=== PATIENT | female | born 1930 | race Caucasian/White ===

== ENCOUNTER 2017-03-29 12:09 | Emergency (ER) | payer OTHER ==
--- NOTE | 2017-03-29 14:14 | DIAGNOSTIC IMAGING REPORT ---
PROCEDURE: CT ABDOMEN/PELVIS W/O CONTRAST INDICATION: LEFT FLANK PAIN TECHNIQUE: Noncontrast axial images were obtained of the entire abdomen and pelvis with sagittal and coronal reformations. COMPARISON: None. FINDINGS: Hysterectomy. ABDOMEN: There are several tiny 1 mm nonobstructing right renal calculi. No hydronephrosis. Contracted gallbladder with small calcified gallstones. There is gallbladder wall thickening but no biliary distention. Liver, pancreas, spleen and adrenal glands are normal. Severe atherosclerosis of the aorta, celiac trunk and SMA. Small hiatal hernia. Mild descending colon diverticulosis. PELVIS: Right hip arthroplasty with prominent artifacts. Appendix not visualized but no evidence of acute appendicitis. Moderate sigmoid diverticulosis. Hysterectomy. Normal bladder. 5 cm fat filled supraumbilical and 2 cm umbilical hernias. Grade 1 L4-5 anterolisthesis. IMPRESSION: 1. Several 1 mm nonobstructing right renal calculi 2. Contracted gallbladder with cholelithiasis 3. Severe atherosclerosis of the aorta, celiac trunk and SMA 4. Small hiatal hernia 5. Moderate sigmoid diverticulosis 6. Hysterectomy 7. Fat filled supraumbilical and umbilical hernias 8. Results discussed with Dr. Talamantes All CT scans at this facility use dose modulation, iterative reconstruction, and/or weight-based dosing when appropriate to reduce radiation dose to as low as reasonably achievable.
--- NOTE | 2017-03-29 14:47 | ED CLINICAL REPORT ---
Clinical Report - Physicians/Mid Levels [facility] [address] [place] [address] 03/29/2017 12:09 Patient: PATRICIO NUNES Time Seen: 1221. Arrived- By ambulance. Historian- patient. HISTORY OF PRESENT ILLNESS Chief Complaint: ABDOMINAL PAIN. This started today and is still present. It was abrupt in onset and has been constant but is not gone now. At its maximum, severity described as moderate. When seen in the E.D., severity described as moderate. Modifying factors. Not worsened by anything. Not relieved by anything. It is described as sharp. No radiation. It is described as located in the left flank. No nausea, loss of appetite, vomiting or diarrhea. No additional abdominal pain. (patient states she was told to go to the emergency department because of concerns for Tylenol overdose. States she did not take more Tylenol than recommended. Patient states there is 10 tabs that are 325 mg. Per daughter, all of those tabs have been missing over the course of 24 hours. No other symptoms noted.). No recent travel. Similar symptoms previously: None. Recent medical care: The patient was seen recently in a clinic. REVIEW OF SYSTEMS No constipation, black stools, hematemesis, bloody stools or fever. No headache, chest pain, cough or skin rash. All systems otherwise negative, except as recorded above. PAST HISTORY See nurses notes. Medications: Lipitor 40mg. 1 daily. Tradjenta 5mg. 1 daily. Metformin 1000mg. 1- twice daily. Lasarton 25mg 1 - twice daily. Pottassium Chloride ER 10 1 Daily. BRINONIDINE EYE DROPS 1 TWICE DLY.. Latanoprost Ophthalmic. Tylenol Oral. Vitt. Allergies: No Known Drug Allergy. SOCIAL HISTORY Never smoker. No alcohol use or drug use. No recent travel. Is a local resident. ADDITIONAL NOTES The nursing notes have been reviewed. PHYSICAL EXAM Vital Signs: 03/29/2017 12:21 BP: 199/86. HR: 96. RR: 18. O2 saturation: 97%. Temp: 97.3 F. Pain level now: 4/10. Oxygen saturation normal. Appearance: Alert. Oriented X3. No acute distress. (pleasant, cooperative, non-toxic). ENT: Ears normal. Nose normal. Pharynx normal. Neck: Normal inspection. Neck supple. CVS: Normal heart rate and rhythm. Heart sounds normal. Pulses normal. Respiratory: No respiratory distress. Breath sounds normal. Chest nontender. Abdomen: Soft and nontender. Bowel sounds normal. Skin: Skin warm and dry. Normal skin color. No rash. Normal skin turgor. Extremities: Extremities exhibit normal ROM. No lower extremity edema. Neuro: Oriented X 3. No motor deficit. No sensory deficit. LABS, X-RAYS, AND EKG Abdominal CT: PROCEDURE: CT ABDOMEN/PELVIS W/O CONTRAST INDICATION: LEFT FLANK PAIN TECHNIQUE: Noncontrast axial images were obtained of the entire abdomen and pelvis with sagittal and coronal reformations. COMPARISON: None. FINDINGS: Hysterectomy. ABDOMEN: There are several tiny 1 mm nonobstructing right renal calculi. No hydronephrosis. Contracted gallbladder with small calcified gallstones. There is gallbladder wall thickening but no biliary distention. Liver, pancreas, spleen and adrenal glands are normal. Severe atherosclerosis of the aorta, celiac trunk and SMA. Small hiatal hernia. Mild descending colon diverticulosis. PELVIS: Right hip arthroplasty with prominent artifacts. Appendix not visualized but no evidence of acute appendicitis. Moderate sigmoid diverticulosis. Hysterectomy. Normal bladder. 5 cm fat filled supraumbilical and 2 cm umbilical hernias. Grade 1 L4-5 anterolisthesis. IMPRESSION: 1. Several 1 mm nonobstructing right renal calculi 2. Contracted gallbladder with cholelithiasis 3. Severe atherosclerosis of the aorta, celiac trunk and SMA 4. Small hiatal hernia 5. Moderate sigmoid diverticulosis 6. Hysterectomy 7. Fat filled supraumbilical and umbilical hernias. Laboratory Tests: UA-Culture if indicated: (MARLYN: 03/29/2017 12:35) ( MsgRcvd 03/29/2017 13:27) Final results Test Result Flag Units (Reference) URINE COLOR YELLOW URINE APPEARANCE SL CLOUDY URINE GLUCOSE NEGATIVE (NEGATIVE) URINE BILIRUBIN NEGATIVE (NEGATIVE) URINE KETONE NEGATIVE (NEGATIVE) URINE SPECIFIC GRAVITY 1.010 (1.010-1.030) URINE PH 5.5 (5.0-8.0) URINE PROTEIN 1+ (NEGATIVE) URINE UROBILINOGEN 0.2 EU/dL (0.2-1.0) URINE NITRITE NEGATIVE (NEGATIVE) URINE BLOOD TRACE-INTACT (NEGATIVE) URINE LEUK ESTERASE NEGATIVE (NEGATIVE) URINE RBC RARE rbc/hpf (0-1) URINE WBC RARE wbc/hpf (0-1) URINE EPITHELIAL CELLS NONE SEEN EPI/hpf (0-5) URINE BACTERIA NONE SEEN (NONE SEEN) URINE COMMENT CULT NOT INDICATED 2+ AMORPHOUS URATESURINE CULTURES ARE SET-UP BASED ON THE FOLLOWING CRITERIA:POSITIVE NITRITEPOSITIVE LEUKOCYTE ESTERASEGREATER THAN 10 WHITE BLOOD CELLSMODERATE (2+) OR GREATER BACTERIA CBC w Diff: (MARLYN: 03/29/2017 12:25) ( OkgRcvd 03/29/2017 12:52) Final results Test Result Flag Units (Reference) WHITE BLOOD COUNT 8.6 K/uL (4.5-11.5) RED BLOOD COUNT 3.80 L M/uL (4.00-5.20) HEMOGLOBIN 11.4 L gm/dL (12.0-16.0) HEMATOCRIT 34.5 L % (36.0-46.0) MEAN CELL VOLUME 91 fL (80-100) MEAN CORPUSCULAR HGB 30 pg (26-34) MEAN CORPUSCULAR HGB CONC 33 g/dL (31-37) RED CELL DISTRIBUTION WIDTH 15.3 H % (11.6-14.8) PLATELET COUNT 247 K/uL (150-400) NEUTROPHIL % 68.1 % (50-75) LYMPH % 23.4 L % (25-40) MONO % 6.3 % (3-14) EOSINOPHIL % 2.0 % (0-4) BASOPHIL % 0.2 % (0-2) PT with INR: (MARLYN: 03/29/2017 12:25) ( MsgRcvd 03/29/2017 12:56) Final results Test Result Flag Units (Reference) INR 1.0 (0.8-1.2) Low Intensity Therapy: INR 1.5-2.0 PT range 18.5-23.1Mod.Intensity Therapy: INR 2.0-3.0 PT range 23.1-31.5High Intensity Therapy: INR 2.5-3.5 PT range 27.4-35.5High Intensity Therapy 2: INR 3.0-4.0 PT range 31.5-39.3 Urine Drug Screen: (MARLYN: 03/29/2017 12:35) ( MsgRcvd 03/29/2017 13:39) Final results Test Result Flag Units (Reference) AMPHETAMINE/METHAMPHETAMINE NEGATIVE (NEGATIVE) BARBITURATE NEGATIVE (NEGATIVE) BENZODIAZEPINE NEGATIVE (NEGATIVE) CANNABINOID NEGATIVE (NEGATIVE) COCAINE NEGATIVE (NEGATIVE) ECSTASY NEGATIVE (NEGATIVE) METHADONE NEGATIVE (NEGATIVE) OPIATE NEGATIVE (NEGATIVE) The urine drug screen is a qualitative screening test fordrug overdose and abuse. All screen results should beconsidered as presumptive.Drugs screened for are as follows:BenzodiazepinesCocaineAmphetamines/MetamphetaminesTHC (Tetrahydrocannabinol)OpiatesBarbituratesEcstasyMethadonePositive results are unconfirmed. For confirmation, notifythe lab for the specimen to be sent to the reference lab.All confirmations must be performed by a differentmethodology.The ingestion of natural herbal and plant productscontaining Ephedra/Ephedra metabolites can produce in urineone or more substances capable of cross reacting withamphetamine/methamphetamine immunoassays. These testsprovide a preliminary result only. A more specificalternative chemical method must be used to obtain aconfirmed analytical result. CMP: (MARLYN: 03/29/2017 12:25) ( MsgRcvd 03/29/2017 13:59) Final results Test Result Flag Units (Reference) GLUCOSE 124 H mg/dL (70-110) BUN 22 H mg/dL (7-18) CREATININE 1.1 mg/dL (0.6-1.3) Estimated GFR 49.82 mL/min Estimated GFR- >60 mL/min Note: Persistent reduction over 3 months in eGFR<60 mL/min/1.73 m2 defines CKD. Patients with eGFR values>=60 mL/min/1.73 m2 may also have CKD if evidence ofpersistent proteinuria. Additional information may be foundat www.kidney.org. SODIUM 137 mmol/L (136-145) POTASSIUM 4.8 mmol/L (3.5-5.1) CHLORIDE 101 mmol/L (98-107) CARBON DIOXIDE 21 mmol/L (21-32) CALCIUM 9.2 mg/dL (8.5-10.1) TOTAL PROTEIN 8.2 g/dL (6.4-8.2) ALBUMIN 3.4 g/dL (3.3-5.0) BILIRUBIN, TOTAL 0.4 mg/dL (0.0-1.0) ALKALINE PHOSPHATASE 144 H U/L (46-116) AST (SGOT) 39 H U/L (15-37) ALT (SGPT) 34 U/L (12-78) LIPASE 216 U/L (73-393) ETHYL ALCOHOL < 2 L mg/dL (3-10) ACETAMINOPHEN < 2.0 L ug/mL (10-30) . PROGRESS AND PROCEDURES Course of Care: the patient is a 86-year-old female presenting for evaluation of abdominal pain and potential overdose. At this time differential diagnosis includes acute acetaminophen overdose. Patient also been evaluated for abdominal pain. Differential diagnosis includes renal colic, diverticulitis, or urinary tract infection. Patient isagreeable to the treatment plan. Again patient is very adamant that she did not overdose on her Tylenol however family is concerned about this. Laboratory studies for acute toxic Ingestion have been ordered. The patient's workup was remarkable for the findings above. No acute findings of acute acetaminophen overdose. PT is normal. No significant elevation in the liver enzymes, Although only slightly elevated. Acetaminophen level is also negative. do not feel patient has acute Tylenol overdose. Would expect either larger elevation in patients liver enzymes, an abnormality in the PT, or a slight elevation at least in the patient's acetaminophen level. Patient's CT scan does not show any signs of pathology to explain the patient's left flank pain. Urinalysis does not show any signs of infection. Because of the patient's negative workup here in the emergency department, do not feel patient requires further emergency department evaluation/workup. Do not fill patient is being admitted. Recommended patient follow up with her primary care Dr. Also recommended patient have a home health nurse or other type of supervision while at home. Also recommended other alternatives for the patient's discomfort including a pillbox for the Tylenol itself. Disposition: Discharged. Condition: good. CLINICAL IMPRESSION Acute left lower quadrant abdominal pain. Accidental single drug overdose with acetaminophen. INSTRUCTIONS Warnings: GENERAL WARNINGS: Return or contact your physician immediately if your condition worsens or changes unexpectedly, if not improving as expected, or if other problems arise. SPECIFICALLY, return if you develop pain, fever, vomiting, the inability to keep fluids down, blood in vomitus, blood in diarrhea, fainting or lightheadedness. Your Current Medications: CONTINUE TAKING THE FOLLOWING MEDICATIONS: BRINONIDINE EYE DROPS 1 TWICE DLY.*. Lasarton 25mg 1 - twice daily*. Latanoprost Ophthalmic. Lipitor 40mg. 1 daily*. Metformin 1000mg. 1- twice daily*. Pottassium Chloride ER 10 1 Daily*. Tradjenta 5mg. 1 daily*. Tylenol Oral. Vitt*. Follow-up: Return to the emergency department as needed. Follow up with your doctor in three days. Reason for referral: recheck today's concerns. Summary of care provided to patient via paper. Screening today revealed the patient's blood pressure to be in the normal range. The patient should follow up with a primary care provider for blood pressure management. Understanding of the discharge instructions verbalized by patient. (Electronically signed by Jay Talamantes Dr. 04/01/2017 5:18)
--- NOTE | 2017-03-29 14:47 | ED NURSING NOTES ---
Clinical Report - Nurses [facility] [address] [place] [address] 03/29/2017 12:09 [id number] Triage time 12:21. Acuity: LEVEL 3. Chief Complaint: BACK PAIN (Questionable if she took 6 tylenol over 24hrs. Sent from the clinic for od of the tylenol.). Alert. No acute distress. SEPSIS SCREEN: Sepsis Screen: negative. Negative (no infection suspected/documented). LUCI COMA SCORE: Luci Coma Scale: 15- eyes open spontaneously (4); best verbal response- oriented x 4 (5); best motor response- obeys commands (6). --12:31 Yadira Mcdonald R.N. 12:21 03/29/17. BP: 199/86. HR: 96. RR: 18. O2 saturation: 97%. Temp: 97.3 F. Pain level now: 01/30. --12:31 Yadira Mcdonald R.N. 12:21 03/29/17. BP: 199/86. HR: 96. RR: 18. O2 saturation: 97%. Temp: 97.3 F. Pain level now: 01/30. --12:31 Yadira Mcdonald R.N. Weight: 79.3 kg estimated. Height/Length: 65 inches Estimated. BMI: 29.1. --12:27 Yadira Mcdonald R.N. Medications Vitt. --12:25 Yadira Mcdonald R.N. Tylenol Oral. --12:25 Yadira Mcdonald R.N. Latanoprost Ophthalmic. --13:43 Britta Lewisraine, ER Tech1 BRINONIDINE EYE DROPS 1 TWICE DLY.. --13:44 Debbie Katia, ER Tech1 Pottassium Chloride ER 10 1 Daily. --13:45 Britta Lewisraine, ER Tech1 Lasarton 25mg 1 - twice daily. --13:45 Britta Lewisraine, ER Tech1 Metformin 1000mg. 1- twice daily. --13:46 Debbie, Katia, ER Tech1 Tradjenta 5mg. 1 daily. --13:46 Debbie, Katia, ER Tech1 Lipitor 40mg. 1 daily. --13:47 Debbie, Katia, ER Tech1. Medication/allergy information source: the patient. --12:31 Yadira Mcdonald R.N. Allergies No Known Drug Allergy. --12:27 Yadira Mcdonald R.N. History Arrived by private vehicle. Historian: patient. Accompanied by family. Primary physician ([facility]). This started just prior to arrival. Treatment ENVIRONMENTAL ENGINEERING TECHNICIAN: None. PAST MEDICAL HX: Immunizations: status is unknown. The patient is post-menopausal. SOCIAL HX: Never smoker. No alcohol use or drug use. FALL RISK ASSESSMENT: Fall risk assessment completed. No fall risk identified. NUTRITIONAL RISK ASSESSMENT: The nutritional risk assessment revealed no deficiencies. LEARNING NEEDS ASSESSMENT: The learning needs assessment revealed no barriers. FUNCTIONAL ASSESSMENT: Functional assessment performed: requires assistance with the activities of daily living; uses walker. SKIN INTEGRITY ASSESSMENT: Skin integrity risk assessment completed. No skin integrity risk identified. --12:31 Yadira Mcdonald R.N. PROBLEMS: Back Pain. --12:27 Yadira Mcdonald R.N. Interventions ID band on patient. To room. --12:31 Yadira Mdconald R.N. PHYSICAL ASSESSMENT Ambulatory to room. Patient gowned. GENERAL / NEURO / PSYCH: Alert. Oriented X 4. Appears anxious. HEENT: No facial asymmetry noted. Mucous membranes are pink. RESPIRATORY: Respirations not labored. CVS: Capillary refill less than 2 seconds. GI / : Abdomen nontender. SKIN: Skin intact. Skin is warm and dry. Normal skin turgor. --12:32 Yadira Mcdonald R.N. NURSING PROGRESS NOTES Patient gowned. Head of bed elevated. Two patient identifiers checked. Call light placed in reach. Side rails up x 2. Bed placed in lowest position. Brakes of bed on. Patient ready for evaluation. --12:32 Yadira Mcdonald R.N. 12:32 03/29/2017 Site #1 started via IV in the right wrist with an 20g angiocath; one attempt. Blood drawn: rainbow set. Labeled in the presence of the patient and sent to the lab. Saline lock flushed with 10 mL saline. --12:32 Yadira Mcdonald R.N. 12:43 03/29/2017 Started bag #1 1000 mL IV Fluids IV NS (Saline); bolus of 500 mL over 30 minute(s) then at 1000 mL/hr over 30 minute(s) via site #1. Allergies verified and confirmed 5 rights. IV patency established. IV site checked: no pain, redness, or swelling. IV flushed thoroughly pre- and post-medication administration. --12:43 Yadira Mcdnoald R.N. 13:28 03/29/17. Reassessment after fluids administered. She is calm. Overall patient status is the same- she states feels the same (amb to BR and back, pt states she had a BM, positioned on left side). RESPIRATORY: No respiratory distress. SKIN: Skin is warm and dry. Skin rash located on the left hand (left wrist). --13:29 Lucie Ahumada R.N. 13:32 03/29/17. BP: 185/65. HR: 102. RR: 18. O2 saturation: 96%. --13:33 Lucie Ahumada R.N. 13:30 03/29/2017 IV Fluids IV NS Discontinued: bag #1. Total amount infused: 500 mL (bolus infused). --13:35 Lucie Ahumada R.N. ( Assisted to and from the bathroom. Patient uses walker. Voids w/o difficulty.). --14:11 Yadira Mcdonald R.N. 14:11 03/29/17. BP: 144/72 taken on the left arm, while sitting. HR: 103. RR: 16. O2 saturation: 97% on room air. --14:12 Yadira Mcdonald R.N. 15:00. Reassessment after fluids administered and procedure. She is resting quietly. Overall patient status is the same- she states feels the same. RESPIRATORY: No respiratory distress. SKIN: Skin is warm and dry. --16:45 Lucie Ahumada R.N. 15:00 03/29/2017 Site #1 removed upon discharge. Catheter intact. Bandaid applied. --16:47 Lucie Ahumada R.N. DISPOSITION / DISCHARGE Departure time: 1500. Condition at departure: improved and stable. Fall risk assessment completed. Risk factors identified include patient age greater than 65 years and impairment of mobility. Fall interventions initiated. Family at bedside. No learning barriers present. Teaching performed with the patient and family. Discharge instructions provided and reviewed with the patient and family. Patient and family verbalized understanding. Written instructions provided in [place]. The patient was discharged home and accompanied by family. She left the Emergency Department ambulatory, via private vehicle and (with her walker). Family member driving. --16:44 Lucie Ahumada R.N. 15:00 03/29/17. BP: 152/87. HR: 86. RR: 16. O2 saturation: 97%. Pain level now: 0/10. --16:44 Lucie Ahumada R.N. 15:00 03/29/17. BP: 152/87. HR: 86. RR: 16. O2 saturation: 97%. Pain level now: 0/10. 14:11 03/29/17. BP: 144/72 taken on the left arm, while sitting. HR: 103. RR: 16. O2 saturation: 97% on room air. 13:32 03/29/17. BP: 185/65. HR: 102. RR: 18. O2 saturation: 96%. 12:21 03/29/17. BP: 199/86. HR: 96. RR: 18. O2 saturation: 97%. Temp: 97.3 F. Pain level now: 410. --17:55 Yadira Mcdonald R.N. Locked/Released at 03/29/2017 17:56 by Yadira Mcdonald R.N.
--- NOTE | 2017-03-29 14:47 | ED ORDER SUMMARY ---
..... Patient: PATRICIO NUNES OrderSheet [facility] VisitID: [id number] [place] [address] 86y, F Registration Date/Time: 03/29/2017 ORDER SHEET Weight: 79.3 kg (estimated) Allergies: No Known Drug Allergy GENERAL ORDERS: CT Abd/Pel wo Cont Urgent (12:31 03/29/2017 Nitin Dunaway) (Ack 12:35 LNations ER Tech1) (13:53 LNations ER Tech1) CBC w Diff Urgent (12:32 03/29/2017 Nitin Dunaway) (Ack 12:34 LNations ER Tech1) (12:40 SRoberts R.N.) CMP Urgent (12:03/29/2017 Nitin Dunaway) (Ack 12:35 LNations ER Tech1) (12:40 SRoberts R.N.) UA-Culture if indicated Urgent (12:32 03/29/2017 Nitin Dunaway) (Ack 12:35 LNations ER Tech1) (12:40 SRoberts R.N.) PT with INR Urgent (12:32 03/29/2017 Nitin Dunaway) (Ack 12:35 LNations ER Tech1) (12:40 SRoberts R.N.) Lipase Urgent (12:32 03/29/2017 Nitin Dunaway) (Ack 12:34 LNations ER Tech1) (12:40 SRoberts R.N.) Urine Drug Screen Urgent (12:03/29/2017 Nitin Dunaway) (Ack 12:35 LNations ER Tech1) (12:40 SRoberts R.N.) Salicylate Level Urgent (12:03/29/2017 Nitin Dunaway) (Ack 12:35 LNations ER Tech1) (12:40 SRoberts R.N.) Acetaminophen Level Urgent (12:03/29/2017 Nitin Dunaway) (Ack 12:35 LNations ER Tech1) (12:40 SRoberts R.N.) Ethyl Alcohol Urgent (12:03/29/2017 Nitin Dunaway) (Ack 12:35 LNations ER Tech1) (12:40 SRoberts R.N.) Pulse oximeter (12:32 03/29/2017 Nitin Dunaway) (Ack 12:34 LNations ER Tech1) (12:39 SRoberts R.N.) MEDICATION ORDERS: IV FLUIDS: IV NS : initial bolus 500 mL (1000 mL/hr), then none - for X1 (NOW) (12:31 03/29/2017 Nitin Dunaway) (12:43 SRoberts R.N.) Morphine IV 2 mg (HIGH ALERT MEDICATION, NOW) (12:32 03/29/2017 Nitin Dunaway) (Hold 12:42 SRoberts R.N.) ORDER SHEET NOTES: [Electronically signed by Yadira Mcdonald R.N. (17:56 03/29/2017)] [Electronically signed by Jay Talamantes Dr. (05:18 04/01/2017)] [Electronically locked/signed by Yadira Mcdonald R.N. (17:56 03/29/2017)]
--- NOTE | 2017-03-29 14:47 | ED ORDER SUMMARY ---
..... Patient: PATRICIO NUNES OrderSheet [facility] VisitID: [id number] [place] [address] 86y, F Registration Date/Time: 03/29/2017 ORDER SHEET Weight: 79.3 kg (estimated) Allergies: No Known Drug Allergy GENERAL ORDERS: CT Abd/Pel wo Cont Urgent (12:31 03/29/2017 Nitin Dunaway) (Ack 12:35 LNations ER Tech1) (13:53 LNations ER Tech1) CBC w Diff Urgent (12:32 03/29/2017 Nitin Dunaway) (Ack 12:34 LNations ER Tech1) (12:40 SRoberts R.N.) CMP Urgent (12:03/29/2017 Nitin Dunaway) (Ack 12:35 LNations ER Tech1) (12:40 SRoberts R.N.) UA-Culture if indicated Urgent (12:32 03/29/2017 Nitin Dunaway) (Ack 12:35 LNations ER Tech1) (12:40 SRoberts R.N.) PT with INR Urgent (12:32 03/29/2017 Nitin Dunaway) (Ack 12:35 LNations ER Tech1) (12:40 SRoberts R.N.) Lipase Urgent (12:32 03/29/2017 Nitin Dunaway) (Ack 12:34 LNations ER Tech1) (12:40 SRoberts R.N.) Urine Drug Screen Urgent (12:03/29/2017 Nitin Dunaway) (Ack 12:35 LNations ER Tech1) (12:40 SRoberts R.N.) Salicylate Level Urgent (12:03/29/2017 Nitin Dunaway) (Ack 12:35 LNations ER Tech1) (12:40 SRoberts R.N.) Acetaminophen Level Urgent (12:03/29/2017 Nitin Dunaway) (Ack 12:35 LNations ER Tech1) (12:40 SRoberts R.N.) Ethyl Alcohol Urgent (12:03/29/2017 Nitin Dunaway) (Ack 12:35 LNations ER Tech1) (12:40 SRoberts R.N.) Pulse oximeter (12:32 03/29/2017 Nitin Dunaway) (Ack 12:34 LNations ER Tech1) (12:39 SRoberts R.N.) MEDICATION ORDERS: IV FLUIDS: IV NS : initial bolus 500 mL (1000 mL/hr), then none - for X1 (NOW) (12:31 03/29/2017 Nitin Dunaway) (12:43 SRoberts R.N.) Morphine IV 2 mg (HIGH ALERT MEDICATION, NOW) (12:32 03/29/2017 Nitin Dunaway) (Hold 12:42 SRoberts R.N.) ORDER SHEET NOTES: [Electronically signed by Yadira Mcdonald R.N. (17:56 03/29/2017)] [Electronically signed by Jay Talamantes Dr. (05:18 04/01/2017)] [Electronically locked/signed by Yadira Mcdonald R.N. (17:56 03/29/2017)]
--- NOTE | 2017-04-01 05:18 | ED DISCHARGE INSTRUCTIONS ---
Patient: PATRICIO NUNES General Instructions [facility] VisitID: [id number] [place] [address] 86y, F Registration Date/Time: 03/29/2017 Acute left lower quadrant abdominal pain. Accidental single drug overdose with acetaminophen. INSTRUCTIONS Warnings: GENERAL WARNINGS: Return or contact your physician immediately if your condition worsens or changes unexpectedly, if not improving as expected, or if other problems arise. SPECIFICALLY, return if you develop pain, fever, vomiting, the inability to keep fluids down, blood in vomitus, blood in diarrhea, fainting or lightheadedness. Your Current Medications: CONTINUE TAKING THE FOLLOWING MEDICATIONS: BRINONIDINE EYE DROPS 1 TWICE DLY.*. Lasarton 25mg 1 - twice daily*. Latanoprost Ophthalmic. Lipitor 40mg. 1 daily*. Metformin 1000mg. 1- twice daily*. Pottassium Chloride ER 10 1 Daily*. Tradjenta 5mg. 1 daily*. Tylenol Oral. Vitt*. Follow-up: Return to the emergency department as needed. Follow up with your doctor in three days. Reason for referral: recheck today's concerns. Summary of care provided to patient via paper. Screening today revealed the patient's blood pressure to be in the normal range. The patient should follow up with a primary care provider for blood pressure management. Understanding of the discharge instructions verbalized by patient. ADDITIONAL INFORMATION Abdominal Pain, Unknown Cause (Female) The exact cause of your abdominal (stomach) pain is not certain. This does not mean that this is something to worry about, or the right tests were not done. Everyone likes to know the exact cause of the problem, but sometimes with abdominal pain, there is no clear-cut cause, and this could be a good thing. The good news is that your symptoms can be treated, and you will feel better. Your condition does not seem serious now; however, sometimes the signs of a serious problem may take more time to appear. For this reason,it is important for you to watch for any new symptoms, problems,or worsening of your condition. Over the next few days, the abdominal pain may come and go, or be continuous. Other common symptoms can include nausea and vomiting. Sometimes it can be difficult to tell if you feel nauseous, you may just feel bad and not associate that feeling with nausea. Constipation, diarrhea, and a fever may go along with the pain. The pain may continue even if treated correctly over the following days. Depending on how things go, sometimes the cause can become clear and may require further or different treatment. Additional evaluations, medications, or tests may be needed. Home care Your health care provider may prescribe medications for pain, symptoms, or an infection. Follow the health care provider's instructions for taking these medications. General care Rest until your next exam. No strenuous activities. Try to find positions that ease discomfort. A small pillow placed on the abdomen may help relieve pain. Something warm on your abdomen (such as a heating pad) may help, but be careful not to burn yourself. Diet Do not force yourself to eat, especially if having cramps, vomiting, or diarrhea. Water is important so you do not get dehydrated. Soup may also be good. Sports drinks may also help, especially if they are not too acidic. Make sure you don't drink sugary drinks as this can make things worse. Take liquids in small amounts. Do not guzzle them. Caffeine sometimes makes the pain and cramping worse. Avoid dairy products if you have vomiting or diarrhea. Don't eat large amounts at a time. Wait a few minutes between bites. Eat a diet low in fiber (called a low-residue diet). Foods allowed include refined breads, white rice, fruit and vegetable juices without pulp, tender meats. These foods will pass more easily through the intestine. Avoid whole-grain foods, whole fruits and vegetables, meats, seeds and nuts, fried or fatty foods, dairy, alcohol and spicy foods until your symptoms go away. Follow-up care Follow up with your health care provider as instructed, or if your pain does not begin to improve in the next 24 hours. When to seek medical care Seek prompt medical care if any of the following occur: Pain gets worse or moves to the right lower abdomen New or worsening vomiting or diarrhea Swelling of the abdomen Unable to pass stool for more than three days Fever of 100.4F (38C) or higher, or as directed by your healthcare provider. Blood in vomit or bowel movements (dark red or black color) Jaundice (yellow color of eyes and skin) Weakness, dizziness Chest, arm, back, neck or jaw pain Unexpected vaginal bleeding or missed period Call 911 Call emergency services if any of the following occur: Trouble breathing Confusion Fainting or loss of consciousness Rapid heart rate Seizure Accidental Ingestion:Non-Toxic [Adult] You have been evaluated and treated for taking too much of a medicine or swallowing a chemical product. There is no sign of toxic effect at this time. It is very unlikely that any new symptoms will appear. As a safeguard, you must be alert for symptoms during the next 24 hours (see below). The exact symptom will depend on what was swallowed. Home Care: If LIQUID CHARCOAL was given to neutralize what was swallowed, it will cause a black color to the stools for 1-2 days. Usually, a laxative (sorbitol) is given with charcoal to speed the removal of any toxins from the intestinal tract. This may cause diarrhea for up to 24 hours. If no laxative was given with charcoal, you may get constipated. If this occurs, you may take an [id number] laxative such as Dulcolax pills or suppository. Prevention: Keep medicines, pesticides, and other household chemicals in their original containers. Clearly brooklynn all harmful products if a different bottle is used. Follow Up with your doctor if all symptoms do not resolve within 24 hours or if constipation is not relieved by one or two doses of laxatives. Get Prompt Medical Attention if any of the following occur: Excess drowsiness or inability to be awakened Rapid heart beat, shakiness or seizure Fast breathing (over 25 breaths/minute) or slow breathing (less than 8 breaths/minute) Feeling shortness of breath Fever of 100.4F (38C) or higher, or as directed by your healthcare provider Vomiting or diarrhea for more than 24 hours Blood in stools or vomit (black or red color) Chest or abdominal pain Dizziness, weakness or fainting You have been given the following additional information: Abdominal Pain, Unknown Cause, (Female) Overdose, Accidental (Adult) (Electronically signed by Jay Talamantes Dr. 04/01/2017 5:18)
--- NOTE | 2017-04-01 05:18 | ED MAR SUMMARY ---
..... Medication Administration Record [facility] [address] [place] [address] Patient: PATRICIO NUNES Visit ID: [id number] 86y, F Weight: 79.3 kg Height/Length: 65 in BMI: 29.1 ALLERGIES: No Known Drug Allergy Start 12:43 03/29/2017 Yadira Mcdonald RKatrin, Stop 13:30 03/29/2017 Lucie Ahumada R.N. Medication Administered: IV NS (SALINE), Dose: IV Fluids over 30 minute(s), Rate: 1000 mL/hr, Bolus: 500 mL over 30 minute(s), Dispensed: 1000 mL bag, Site: #1 right wrist. Medication Ordered: IV NS : initial bolus 500 mL (1000 mL/hr), then none - for X1 (NOW).
--- NOTE | 2017-04-01 05:18 | ED MED RECONCILIATION SUMMARY ---
Patient: PATRICIO NUNES Medication Reconciliation Report [facility] VisitID: [id number] [address] [place] [address] 86y, F Registration Date/Time: 03/29/2017 Weight: 79.3 kg Height/Length: 65 in. BMI: 29.1 ALLERGIES: No Known Drug Allergy The patient's Home Medications are listed below: CONTINUE TAKING THE FOLLOWING MEDICATIONS: BRINONIDINE EYE DROPS 1 TWICE DLY. Lasarton 25mg 1 - twice daily Latanoprost Ophthalmic Lipitor 40mg. 1 daily Metformin 1000mg. 1- twice daily Pottassium Chloride ER 10 1 Daily Tradjenta 5mg. 1 daily Tylenol Oral Vitt The source(s) of the original Home Medication information: patient The following Medications were given to the patient in the Emergency Department: IV NS IV Fluids bolus 500 mL over 30 minute(s), then 1000 mL/hr, administered: 03/29/2017 12:43:00 PM The following Medications were prescribed to the patient: None.
--- NOTE | 2017-04-01 05:18 | ED MAR SUMMARY ---
..... Medication Administration Record [facility] [address] [place] [address] Patient: PATRICIO NUNES Visit ID: [id number] 86y, F Weight: 79.3 kg Height/Length: 65 in BMI: 29.1 ALLERGIES: No Known Drug Allergy Start 12:43 03/29/2017 Yadira Mcdonald RKatrin, Stop 13:30 03/29/2017 Lucie Ahumada R.N. Medication Administered: IV NS (SALINE), Dose: IV Fluids over 30 minute(s), Rate: 1000 mL/hr, Bolus: 500 mL over 30 minute(s), Dispensed: 1000 mL bag, Site: #1 right wrist. Medication Ordered: IV NS : initial bolus 500 mL (1000 mL/hr), then none - for X1 (NOW).
--- NOTE | 2017-04-01 05:18 | ED MED RECONCILIATION SUMMARY ---
Patient: PATRICIO NUNES Medication Reconciliation Report [facility] VisitID: [id number] [address] [place] [address] 86y, F Registration Date/Time: 03/29/2017 Weight: 79.3 kg Height/Length: 65 in. BMI: 29.1 ALLERGIES: No Known Drug Allergy The patient's Home Medications are listed below: CONTINUE TAKING THE FOLLOWING MEDICATIONS: BRINONIDINE EYE DROPS 1 TWICE DLY. Lasarton 25mg 1 - twice daily Latanoprost Ophthalmic Lipitor 40mg. 1 daily Metformin 1000mg. 1- twice daily Pottassium Chloride ER 10 1 Daily Tradjenta 5mg. 1 daily Tylenol Oral Vitt The source(s) of the original Home Medication information: patient The following Medications were given to the patient in the Emergency Department: IV NS IV Fluids bolus 500 mL over 30 minute(s), then 1000 mL/hr, administered: 03/29/2017 12:43:00 PM The following Medications were prescribed to the patient: None.
== END 2017-03-29 15:00 | disposition home or self-care (01) ==
LOC: ED SRH 12:09
DX: T39.1X1A Poisoning by 4-Aminophenol derivatives, accidental (unintentional), initial encounter (principal); R10.32 Left lower quadrant pain; Z79.84 Long term (current) use of oral hypoglycemic drugs; Z79.899 Other long term (current) drug therapy
CPT/HCPCS: 90004; 90100; 92010; 92235; 92760; 92761; 92762; 92763; 92764; 92765; 92766; 92767; 92780; 94060; 95059; 97000

== ENCOUNTER 2017-04-06 16:25 | Emergency (ER) | payer OTHER ==
--- NOTE | 2017-04-06 18:19 | DIAGNOSTIC IMAGING REPORT ---
PROCEDURE: XR LUMBAR SPINE 2 OR 3 VIEWS INDICATION: LOWER BACK PAIN TECHNIQUE: Three views. COMPARISON: None. FINDINGS: There is a grade I-II (11 mm) degenerative listhesis of L4 on L5 with moderate disc space narrowing. There are marked degenerative changes of the lower lumbar facet descent joints with moderate disc space narrowing at L2-3, L3-4, with marked disc space at L5- S1. There is no evidence of acute process or fracture. There are marked calcified atheromatous changes aorta. IMPRESSION: 1. There are moderate to marked degenerative changes of the lower lumbar spine with grade I-II (11 mm) degenerative listhesis of L4-L5. 2. No evidence of acute process or fracture.
--- NOTE | 2017-04-06 19:02 | ED CLINICAL REPORT ---
Clinical Report - Physicians/Mid Levels [facility] [address] [place] [address] 04/06/2017 16:25 Patient: PATRICIO NUNES Time Seen: 17:30; initial patient contact. Arrived- By private vehicle. Historian- patient. HISTORY OF PRESENT ILLNESS Chief Complaint: BACK PAIN. It is described as being moderate in degree and in the area of the upper lumbar spine and lower lumbar spine and radiating to the abdomen. The quality is noted to be aching. Onset was today and it is still present. Modifying factors- worsened by bending over and lifting. Not relieved by anything. No bladder dysfunction, bowel dysfunction, sensory loss or motor loss. Patient denies an injury but injury to the head or chest. Similar symptoms previously: None. Recent medical care: The patient was seen recently at this facility in the emergency department. REVIEW OF SYSTEMS No fever, chills, constipation, diarrhea or nausea. No vomiting, numbness, weakness or difficulty with urination. She has had abdominal pain and back pain. No difficulty walking. All systems otherwise negative, except as recorded above. PAST HISTORY Diabetes Mellitus. Hypertension. Abdominal Pain. Drug Poisoning. Back Pain. SURGERIES: Appendectomy. Cataract Surgery. Cystocele. Rectocele. Total Hip Replacement. SOCIAL HISTORY Never smoker. No alcohol use or drug use. ADDITIONAL NOTES The nursing notes have been reviewed. PHYSICAL EXAM Vital Signs: 04/06/2017 17:05 BP: 160/68. HR: 109. RR: 18. O2 saturation: 97%. Temp: 97.8 F. Have been reviewed. Hypertensive. Tachycardic. Respiratory rate normal. Temperature normal. Oxygen saturation normal. Appearance: Alert. No acute distress. ENT: Pharynx normal. CVS: Normal heart rate and rhythm. Heart sounds normal. Respiratory: No respiratory distress. Breath sounds normal. Abdomen: Normal inspection. Soft and nontender. Bowel sounds normal. No organomegaly. No mass. Back: Normal inspection. No tenderness. No CVA tenderness. Skin: Skin warm and dry. Normal skin color. Extremities: No lower extremity edema. No calf tenderness. Neuro: Oriented X 3. Mood/affect normal. No motor deficit. No sensory deficit. Straight leg raising: positive on the right at 45 degrees. LABS, X-RAYS, AND EKG LS-Spine X-rays: Spondylolisthesis at the L5-S1 level (stage 1). Views: AP, lateral and obliques. Technique: good. The X-rays were independently viewed by me and interpreted contemporaneously by me. A comparison with prior films (Stable as compared to CT abd/pel on 03/29/17). Laboratory Tests: UA-Culture if indicated: (MARLYN: 04/06/2017 18:35) ( [facility] 04/06/2017 18:54) Final results Test Result Flag Units (Reference) URINE COLOR YELLOW URINE APPEARANCE CLEAR URINE GLUCOSE NEGATIVE (NEGATIVE) URINE BILIRUBIN NEGATIVE (NEGATIVE) URINE KETONE NEGATIVE (NEGATIVE) URINE SPECIFIC GRAVITY 1.010 (1.010-1.030) URINE PH 5.5 (5.0-8.0) URINE PROTEIN TRACE (NEGATIVE) URINE UROBILINOGEN 0.2 EU/dL (0.2-1.0) URINE NITRITE NEGATIVE (NEGATIVE) URINE BLOOD TRACE-INTACT (NEGATIVE) URINE LEUK ESTERASE POSITIVE (NEGATIVE) URINE RBC NONE SEEN rbc/hpf (0-1) URINE WBC 3-5 wbc/hpf (0-1) URINE EPITHELIAL CELLS 1-3 EPI/hpf (0-5) URINE BACTERIA FEW (1+) (NONE SEEN) URINE COMMENT CULTURE INDICATED URINE CULTURES ARE SET-UP BASED ON THE FOLLOWING CRITERIA:POSITIVE NITRITEPOSITIVE LEUKOCYTE ESTERASEGREATER THAN 10 WHITE BLOOD CELLSMODERATE (2+) OR GREATER BACTERIA CBC w Diff: (MARLYN: 04/06/2017 17:40) ( [facility] 04/06/2017 17:55) Final results Test Result Flag Units (Reference) WHITE BLOOD COUNT 6.0 K/uL (4.5-11.5) RED BLOOD COUNT 3.53 L M/uL (4.00-5.20) HEMOGLOBIN 10.5 L gm/dL (12.0-16.0) HEMATOCRIT 31.9 L % (36.0-46.0) MEAN CELL VOLUME 91 fL (80-100) MEAN CORPUSCULAR HGB 30 pg (26-34) MEAN CORPUSCULAR HGB CONC 33 g/dL (31-37) RED CELL DISTRIBUTION WIDTH 15.2 H % (11.6-14.8) PLATELET COUNT 232 K/uL (150-400) NEUTROPHIL % 65.5 % (50-75) LYMPH % 22.7 L % (25-40) MONO % 8.8 % (3-14) EOSINOPHIL % 2.7 % (0-4) BASOPHIL % 0.3 % (0-2) CMP: (MARLYN: 04/06/2017 17:40) ( Msg[facility]cvd 04/06/2017 18:10) Final results Test Result Flag Units (Reference) GLUCOSE 164 H mg/dL (70-110) BUN 19 H mg/dL (7-18) CREATININE 1.2 mg/dL (0.6-1.3) Estimated GFR 45.06 mL/min Estimated GFR- 54.61 mL/min Note: Persistent reduction over 3 months in eGFR<60 mL/min/1.73 m2 defines CKD. Patients with eGFR values>=60 mL/min/1.73 m2 may also have CKD if evidence ofpersistent proteinuria. Additional information may be foundat www.kidney.org. SODIUM 139 mmol/L (136-145) POTASSIUM 4.7 mmol/L (3.5-5.1) CHLORIDE 103 mmol/L (98-107) CARBON DIOXIDE 26 mmol/L (21-32) CALCIUM 8.8 mg/dL (8.5-10.1) TOTAL PROTEIN 7.6 g/dL (6.4-8.2) ALBUMIN 2.9 L g/dL (3.3-5.0) BILIRUBIN, TOTAL 0.3 mg/dL (0.0-1.0) ALKALINE PHOSPHATASE 125 H U/L (46-116) AST (SGOT) 28 U/L (15-37) ALT (SGPT) 28 U/L (12-78) LIPASE 249 U/L (73-393) AMYLASE 45 U/L (25-115) . PROGRESS AND PROCEDURES Disposition: Discharged home in good and improved condition. Condition: good. CLINICAL IMPRESSION Acute nontraumatic lumbar back pain associated with muscle strain. Acute urinary tract infection with cystitis. INSTRUCTIONS No lifting greater than 5 lbs until well. Your Current Medications: CONTINUE TAKING THE FOLLOWING MEDICATIONS: BRINONIDINE EYE DROPS 1 TWICE DLY.*. Lasarton 25mg 1 - twice daily*. Latanoprost Ophthalmic. Lipitor 40mg. 1 daily*. Metformin 1000mg. 1- twice daily*. Pottassium Chloride ER 10 1 Daily*. Tradjenta 5mg. 1 daily*. Tylenol Oral. Vitt*. Prescription Medications: Cipro 500 mg: take 1 tab orally every 12 hours for 3 days. No refills. Substitution is permissible. Follow-up: Follow up with your doctor in about four days. Call for an appointment. Screening today revealed the patient's blood pressure to be in the hypertensive range. The patient should follow up with a primary care provider for blood pressure management. (Electronically signed by Shilo Guthrie Dr. 04/06/2017 22:01)
--- NOTE | 2017-04-06 19:02 | ED ORDER SUMMARY ---
..... Patient: PATRICIO NUNES OrderSheet [facility] VisitID: [id number] [place] [address] 86y, F Registration Date/Time: 04/06/2017 ORDER SHEET Weight: 66.2 kg (stated) Allergies: No Known Drug Allergy GENERAL ORDERS: CBC w Diff Urgent (17:17 04/06/2017 Judy Dunaway) (Ack 17:18 TAVARESoerner) (17:41 LAbe R.N.) CMP Urgent (17:17 04/06/2017 Judy Dunaway) (Ack 17:18 Leahner) (17:41 LAbe R.N.) UA-Culture if indicated Urgent (17:17 04/06/2017 Judy Dunaway) (Ack 17:18 Bryant) (19:11 RMarsden R.N.) Amylase Urgent (17:17 04/06/2017 Judy Dunaway) (Ack 17:18 TAVARESoefiorellaner) (17:42 LAbe R.N.) Lipase Urgent (17:17 04/06/2017 Judy Dunaway) (Ack 17:18 TAVARESoefiorellaner) (17:42 LAbe R.N.) Lumbar Spine 2 or 3V Urgent (17:45 04/06/2017 Judy Dunaway) (Ack 17:46 TAVARESoefiorellaner) (18:13 KHoerner) MEDICATION ORDERS: IV FLUIDS: IV Saline Lock (17:17 04/06/2017 Judy Dunaway) (Ack 17:27 LAbe R.N.) (17:42 LAbe R.N.) ORDER SHEET NOTES: [Electronically signed by Shilo Guthrie Dr. (22:01 04/06/2017)] [Electronically signed by Katelyn Richard R.N. (05:35 04/07/2017)] [Electronically locked/signed by Katelyn Richard R.N. (05:35 04/07/2017)]
--- NOTE | 2017-04-06 19:02 | ED ORDER SUMMARY ---
..... Patient: PATRICIO NUNES OrderSheet [facility] VisitID: [id number] [place] [address] 86y, F Registration Date/Time: 04/06/2017 ORDER SHEET Weight: 66.2 kg (stated) Allergies: No Known Drug Allergy GENERAL ORDERS: CBC w Diff Urgent (17:17 04/06/2017 Judy Dunaway) (Ack 17:18 TAVARESoerner) (17:41 LAbe R.N.) CMP Urgent (17:17 04/06/2017 Judy Dunaway) (Ack 17:18 Leahner) (17:41 LAbe R.N.) UA-Culture if indicated Urgent (17:17 04/06/2017 Judy Dunaway) (Ack 17:18 Bryant) (19:11 RMarsden R.N.) Amylase Urgent (17:17 04/06/2017 Judy Dunaway) (Ack 17:18 TAVARESoefiorellaner) (17:42 LAbe R.N.) Lipase Urgent (17:17 04/06/2017 Judy Dunaway) (Ack 17:18 TAVARESoefiorellaner) (17:42 LAbe R.N.) Lumbar Spine 2 or 3V Urgent (17:45 04/06/2017 Judy Dunaway) (Ack 17:46 TAVARESoefiorellaner) (18:13 KHoerner) MEDICATION ORDERS: IV FLUIDS: IV Saline Lock (17:17 04/06/2017 Judy Dunaway) (Ack 17:27 LAbe R.N.) (17:42 LAbe R.N.) ORDER SHEET NOTES: [Electronically signed by Shilo Guthrie Dr. (22:01 04/06/2017)] [Electronically signed by Katelyn Richard R.N. (05:35 04/07/2017)] [Electronically locked/signed by Katelyn Richard R.N. (05:35 04/07/2017)]
--- NOTE | 2017-04-06 19:02 | ED NURSING NOTES ---
Clinical Report - Nurses [facility] [address] [place] [address] 04/06/2017 16:25 [id number] Triage time 17:05. Acuity: LEVEL 3. Chief Complaint: BACK PAIN and (mid level). Alert. No acute distress. LUCI COMA SCORE: Luci Coma Scale: 15- eyes open spontaneously (4); best verbal response- oriented x 4 (5); best motor response- obeys commands (6). --17:16 Meme Rawls R.N. 17:05 04/06/17. BP: 160/68. HR: 109. RR: 18. O2 saturation: 97%. Temp: 97.8 F. Pain level now 7/10. --17:16 Meme Rawls R.N. Weight: 66.2 kg stated. Height/Length: 65 inches. BMI: 24.3. --17:17 Meme Rawls R.N. Medications BRINONIDINE EYE DROPS 1 TWICE DLY.. Lasarton 25mg 1 - twice daily. Latanoprost Ophthalmic. Lipitor 40mg. 1 daily. Metformin 1000mg. 1- twice daily. Pottassium Chloride ER 10 1 Daily. Tradjenta 5mg. 1 daily. Tylenol Oral. Vitt. --17:08 Meme Rawls R.N. Medication/allergy information source: the patient and patient's family. --17:16 Meme Rawls R.N. Allergies No Known Drug Allergy. --17:08 Meme Rawls R.N. History Arrived by private vehicle. Historian: patient and family. Accompanied by family. Primary physician (maryellen teran). ( mid level back pain radiates to both sides x 2 weeks. Pt not good historian. Seen in ED for same recently.). No history of recent trauma. Treatment BLENDING COORDINATOR: None. PAST MEDICAL HX: Diabetes mellitus. Hypertension. Patient never had a tetanus shot. Immunizations: (none). SOCIAL HX: Never smoker. No alcohol use or drug use. No infectious disease exposure. SELF HARM ASSESSMENT: A self harm assessment was performed. The patient answered "no" to the question "Have you recently felt down, depressed, or hopeless?", "Do you have thoughts of harming or killing yourself?" and "Are you here because you tried to hurt yourself?". NUTRITIONAL RISK ASSESSMENT: The nutritional risk assessment revealed no deficiencies. LEARNING NEEDS ASSESSMENT: The learning needs assessment revealed no barriers. FALL RISK ASSESSMENT: Fall risk assessment completed. Risk factors identified include patient age greater than 65 years, history of fall and impairment of mobility. Fall interventions initiated. Patient placed on stretcher. Side rails up x2. Brakes on Bed in low position. Family at bedside. Call light in reach of patient. Instructed not to get up without assistance. FUNCTIONAL ASSESSMENT: Functional assessment performed: independent with the activities of daily living; uses walker. SKIN INTEGRITY ASSESSMENT: Skin integrity risk assessment completed. No skin integrity risk identified. --17:16 Meme Rawls R.N. PROBLEMS: Diabetes Mellitus. Hypertension. Abdominal Pain. Drug Poisoning. Back Pain. --17:11 Meme Rawls R.N. ADDITIONAL SURGERIES: Appendectomy. Cataract Surgery. Cystocele. Rectocele. Total Hip Replacement. --17:11 Meme Rawls R.N. Interventions ID band on patient. To treatment room. --17:16 Meme Rawls R.N. PHYSICAL ASSESSMENT BACK: Normal inspection of the back. Soft tissue tenderness in the back. --17:18 Meme Rawls R.N. NURSING PROGRESS NOTES Monitoring of patient in place. Patient gowned. Head of bed elevated. Reassurance given. Two patient identifiers checked. Call light placed in reach. Side rails up x 2. Bed placed in lowest position. Brakes of bed on. Brakes of chair on. Patient ready for evaluation- chart flagged. ED physician notified. --17:19 Meme Rawls R.N. 17:42 04/06/2017 Site #1 started via IV in the right antecubital space with an 20g angiocath, with aseptic technique and good blood return; one attempt. Blood drawn: rainbow set. Labeled in the presence of the patient and sent to the lab. Saline lock flushed with 5 mL saline. --17:42 Meme Rawls R.N. 19:10 04/06/17. Care transferred and report received (from JUAN JOSE Valentine). --19:10 Katelyn Richard R.N. 19:16 04/06/2017 Site #1 removed upon discharge. Manual pressure and bandaid applied. --05:34 Katelyn Richard R.N. DISPOSITION / DISCHARGE 19:23 04/06/17. No learning barriers present. Discharge instructions provided and reviewed with the patient and family. Reviewed warnings. Reviewed medication(s). Treatments reviewed. Reviewed referrals. Activity restrictions reviewed. Patient and family verbalized understanding. Written instructions provided in Yi. The patient was discharged home and accompanied by family. She left the Emergency Department ambulatory and via private vehicle. Family member driving. --19:23 Katelyn Richard R.N. 19:21 04/06/17. BP: 136/71 taken on the left arm, while sitting. HR: 92. RR: 15. O2 saturation: 95% on room air. Temp: 98.1 F. Pain level now: 0/10. --19:23 Katelyn Richard R.N. Departure time: :23. --19:23 Katelyn Richard R.N. Locked/Released at 04/07/2017 5:35 by Katelyn Richard R.N.
--- NOTE | 2017-04-07 05:35 | ED MAR SUMMARY ---
..... Medication Administration Record [facility] [address] [place], [place] [id number] Patient: PATRICIO NUNES Visit ID: [id number] 86y, F Weight: 66.2 kg Height/Length: 65 in BMI: 24.3 ALLERGIES: No Known Drug Allergy
--- NOTE | 2017-04-07 05:35 | ED MED RECONCILIATION SUMMARY ---
Patient: PATRICIO NUNES Medication Reconciliation Report [facility] VisitID: [id number] [address] [place] [address] 86y, F Registration Date/Time: 04/06/2017 Weight: 66.2 kg Height/Length: 65 in. BMI: 24.3 ALLERGIES: No Known Drug Allergy The patient's Home Medications are listed below: CONTINUE TAKING THE FOLLOWING MEDICATIONS: BRINONIDINE EYE DROPS 1 TWICE DLY. Lasarton 25mg 1 - twice daily Latanoprost Ophthalmic Lipitor 40mg. 1 daily Metformin 1000mg. 1- twice daily Pottassium Chloride ER 10 1 Daily Tradjenta 5mg. 1 daily Tylenol Oral Vitt The source(s) of the original Home Medication information: patient patient's family member The following Medications were given to the patient in the Emergency Department: None. The following Medications were prescribed to the patient: Cipro 500 mg: take 1 tab orally every 12 hours for 3 days. No refills. Substitution is permissible. -- Shilo Guthrie Dr.
--- NOTE | 2017-04-07 05:35 | ED DISCHARGE INSTRUCTIONS ---
Patient: PATRICIO NUNES General Instructions [facility] VisitID: [id number] [place] [address] 86y, F Registration Date/Time: 04/06/2017 Acute nontraumatic lumbar back pain associated with muscle strain. Acute urinary tract infection with cystitis. INSTRUCTIONS No lifting greater than 5 lbs until well. Your Current Medications: CONTINUE TAKING THE FOLLOWING MEDICATIONS: BRINONIDINE EYE DROPS 1 TWICE DLY.*. Lasarton 25mg 1 - twice daily*. Latanoprost Ophthalmic. Lipitor 40mg. 1 daily*. Metformin 1000mg. 1- twice daily*. Pottassium Chloride ER 10 1 Daily*. Tradjenta 5mg. 1 daily*. Tylenol Oral. Vitt*. Prescription Medications: Cipro 500 mg: take 1 tab orally every 12 hours for 3 days. No refills. Substitution is permissible. Follow-up: Follow up with your doctor in about four days. Call for an appointment. Screening today revealed the patient's blood pressure to be in the hypertensive range. The patient should follow up with a primary care provider for blood pressure management. ADDITIONAL INFORMATION Back Pain [Acute Or Chronic] Back pain is usually caused by an injury to the muscles or ligaments of the spine. Sometimes the disks that separate each bone in the spine may bulge and cause pain by pressing on a nearby nerve. Back pain may also appear after a sudden twisting/bending force (such as in a car accident), after a simple awkward movement, or lifting something heavy with poor body positioning. In either case, muscle spasm is often present and adds to the pain. Acute back pain usually gets better in one to two weeks. Back pain related to disk disease, arthritis in the spinal joints or spinal stenosis (narrowing of the spinal canal) can become chronic and last for months or years. Unless you had a physical injury (for example, a car accident or fall) X-rays are usually not ordered for the initial evaluation of back pain. If pain continues and does not respond to medical treatment, x-rays and other tests may be performed at a later time. Home Care: You may need to stay in bed the first few days. But, as soon as possible, begin sitting or walking to avoid problems with prolonged bed rest (muscle weakness, worsening back stiffness and pain, blood clots in the legs). When in bed, try to find a position of comfort. A firm mattress is best. Try lying flat on your back with pillows under your knees. You can also try lying on your side with your knees bent up towards your chest and a pillow between your knees. Avoid prolonged sitting. This puts more stress on the lower back than standing or walking. During the first two days after injury, apply an ICE PACK to the painful area for 20 minutes every 2-4 hours. This will reduce swelling and pain. HEAT (hot shower, hot bath or heating pad) works well for muscle spasm. You can start with ice, then switch to heat after two days. Some patients feel best alternating ice and heat treatments. Use the one method that feels the best to you. You may use acetaminophen (Tylenol) or ibuprofen (Motrin, Advil) to control pain, unless another pain medicine was prescribed. [NOTE: If you have chronic liver or kidney disease or ever had a stomach ulcer or GI bleeding, talk with your doctor before using these medicines.] Be aware of safe lifting methods and do not lift anything over 15 pounds until all the pain is gone. Follow Up with your doctor or this facility if your symptoms do not start to improve after one week. Physical therapy may be needed. [NOTE: If X-rays were taken, they will be reviewed by a radiologist. You will be notified of any new findings that may affect your care.] Get Prompt Medical Attention if any of the following occur: Pain becomes worse or spreads to your legs Weakness or numbness in one or both legs Loss of bowel or bladder control Numbness in the groin or genital area Bladder Infection,Female (Adult) A bladder infection ("cystitis" or "UTI") usually causes a constant urge to urinate and a burning when passing urine. Urine may be cloudy, smelly or dark. There may be pain in the lower abdomen. A bladder infection occurs when bacteria from the vaginal area enter the bladder opening (urethra). This can occur from sexual intercourse, wearing tight clothing, dehydration and other factors. Home Care: Drink lots of fluids (at least 6-8 glasses a day, unless you must restrict fluids for other medical reasons). This will force the medicine into your urinary system and flush the bacteria out of your body. Avoid sexual intercourse until your symptoms are gone. Avoid caffeine, alcohol and spicy foods. These can irritate the bladder. A bladder infection is treated with antibiotics. You may also be given Pyridium (generic = phenazopyridine) to reduce the burning sensation. This medicine will cause your urine to become a bright orange color. The orange urine may stain clothing. You may wear a pad or panty-liner to protect clothing. Preventing Future Infections: Always wipe from front to back after a bowel movement. Keep the genital area clean and dry. Drink plenty of fluids each day to avoid dehydration. Both sexual partners should wash before intercourse. Urinate right after intercourse to flush out the bladder. Wear cotton underwear and cotton-lined panty hose; avoid tight-fitting pants. If you are on control pills and are having frequent bladder infections, discuss with your doctor. Follow Up: Return to this facility or see your doctor if ALL symptoms are not gone after three days of treatment. Get Prompt Medical Attention if any of the following occur: Fever of 100.4F (38C) or higher, or as directed by your healthcare provider No improvement by the third day of treatment Increasing back or abdominal pain Repeated vomiting; unable to keep medicine down Weakness, dizziness or fainting Vaginal discharge Pain, redness or swelling in the labia (outer vaginal area) Ciprofloxacin Hydrochloride Oral tablet What is this medicine? CIPROFLOXACIN (sip blanca FLOX a sin) is a quinolone antibiotic. It is used to treat certain kinds of bacterial infections. It will not work for colds, flu, or other viral infections. How should I use this medicine? Take this medicine by mouth with a glass of water. Follow the directions on the prescription label. Take your medicine at regular intervals. Do not take your medicine more often than directed. Take all of your medicine as directed even if you think your are better. Do not skip doses or stop your medicine early. You can take this medicine with food or on an empty stomach. It can be taken with a meal that contains dairy or calcium, but do not take it alone with a dairy product, like milk or yogurt or calcium-fortified juice. A special MedGuide will be given to you by the pharmacist with each prescription and refill. Be sure to read this information carefully each time. Talk to your balance wheel arm burnisher regarding the use of this medicine in children. Special care may be needed. What side effects may I notice from receiving this medicine? Side effects that you should report to your doctor or health rehab care assistant as soon as possible: - allergic reactions like skin rash, itching or hives, swelling of the face, lips, or tongue - breathing problems - confusion, nightmares or hallucinations - feeling faint or lightheaded, falls - irregular heartbeat - joint, muscle or tendon pain or swelling - pain or trouble passing urine -persistent headache with or without blurred vision - redness, blistering, peeling or loosening of the skin, including inside the mouth - seizure - unusual pain, numbness, tingling, or weakness Side effects that usually do not require medical attention (report to your doctor or health rehab care assistant if they continue or are bothersome): - diarrhea - nausea or stomach upset - white patches or sores in the mouth What may interact with this medicine? Do not take this medicine with any of the following medications: cisapride droperidol terfenadine tizanidine This medicine may also interact with the following medications: antacids caffeine cyclosporin didanosine (ddI) buffered tablets or powder medicines for diabetes medicines for inflammation like ibuprofen, naproxen methotrexate multivitamins omeprazole phenytoin probenecid sucralfate theophylline warfarin What if I miss a dose? If you miss a dose, take it as soon as you can. If it is almost time for your next dose, take only that dose. Do not take double or extra doses. Where should I keep my medicine? Keep out of the reach of children. Store at room temperature below 30 degrees C (86 degrees F). Keep container tightly closed. Throw away any unused medicine after the expiration date. What should I tell my health care provider before I take this medicine? They need to know if you have any of these conditions: -bone problems -cerebral disease -joint problems -irregular heartbeat -kidney disease -liver disease -myasthenia gravis -seizure disorder -tendon problems -an unusual or allergic reaction to ciprofloxacin, other antibiotics or medicines, foods, dyes, or preservatives - or trying to get -breast-feeding What should I watch for while using this medicine? Tell your doctor or health rehab care assistant if your symptoms do not improve. Do not treat diarrhea with over the counter products. Contact your doctor if you have diarrhea that lasts more than 2 days or if it is severe and watery. You may get drowsy or dizzy. Do not drive, use machinery, or do anything that needs mental alertness until you know how this medicine affects you. Do not stand or sit up quickly, especially if you are an older patient. This reduces the risk of dizzy or fainting spells. This medicine can make you more sensitive to the sun. Keep out of the sun. If you cannot avoid being in the sun, wear protective clothing and use sunscreen. Do not use sun lamps or tanning beds/booths. Avoid antacids, aluminum, calcium, iron, magnesium, and zinc products for 6 hours before and 2 hours after taking a dose of this medicine. You have been given the following additional information: Back Pain (Acute Or Chronic) Bladder Infection, Female (Adult) Ciprofloxacin Hydrochloride Oral tablet No lifting greater than 5 lbs until well. (Electronically signed by Shilo Guthrie Dr. 04/06/2017 22:01)
--- NOTE | 2017-04-07 05:35 | ED MAR SUMMARY ---
..... Medication Administration Record [facility] [address], [place] [id number] Patient: PATRICIO NUNES Visit ID: [id number] 86y, F Weight: 66.2 kg Height/Length: 65 in BMI: 24.3 ALLERGIES: No Known Drug Allergy
--- NOTE | 2017-04-07 05:35 | ED MED RECONCILIATION SUMMARY ---
Patient: PATRICIO NUNES Medication Reconciliation Report [facility] VisitID: [id number] [address] [place] [address] 86y, F Registration Date/Time: 04/06/2017 Weight: 66.2 kg Height/Length: 65 in. BMI: 24.3 ALLERGIES: No Known Drug Allergy The patient's Home Medications are listed below: CONTINUE TAKING THE FOLLOWING MEDICATIONS: BRINONIDINE EYE DROPS 1 TWICE DLY. Lasarton 25mg 1 - twice daily Latanoprost Ophthalmic Lipitor 40mg. 1 daily Metformin 1000mg. 1- twice daily Pottassium Chloride ER 10 1 Daily Tradjenta 5mg. 1 daily Tylenol Oral Vitt The source(s) of the original Home Medication information: patient patient's family member The following Medications were given to the patient in the Emergency Department: None. The following Medications were prescribed to the patient: Cipro 500 mg: take 1 tab orally every 12 hours for 3 days. No refills. Substitution is permissible. -- Shilo Guthrie Dr.
== END 2017-04-06 19:23 | disposition home or self-care (01) ==
LOC: ED SRH 16:25
DX: S39.012A Strain of muscle, fascia and tendon of lower back, initial encounter (principal); X58.XXXA Exposure to other specified factors, initial encounter; Y93.9 Activity, unspecified; Y92.9 Unspecified place or not applicable; Y99.9 Unspecified external cause status; N30.00 Acute cystitis without hematuria; I10 Essential (primary) hypertension; E11.9 Type 2 diabetes mellitus without complications; Z79.84 Long term (current) use of oral hypoglycemic drugs; Z79.899 Other long term (current) drug therapy
CPT/HCPCS: 90004; 90100; 90469; 92235; 92530; 95059